=== PATIENT | male | born 1970 | race Caucasian/White ===

== ENCOUNTER 2019-04-13 20:46 | Emergency (ER) | payer OTHER ==
[~2019-04-13] VITALS: Ht 177.8 cm; Wt 113.4 kg
[2019-04-13] MEDS ORDERED: COZAAR 25 MG TA25 M1 PO (20:52)
[2019-04-13 21:10] LABS: URINE BILIRUBIN NEGATIVE (Negative); URINE BLOOD NEGATIVE (Negative); URINE CLARITY CLEAR; URINE COLOR YELLOW; URINE GLUCOSE-RANDOM NEGATIVE (Negative); URINE KETONES NEGATIVE (Negative); URINE LEUKOCYTES NEGATIVE (Negative); URINE NITRITE NEGATIVE (Negative); URINE PROTEIN NEGATIVE (Negative); URINE SPECIFIC GRAVITY 1.015 (1.005-1.030); URINE UROBILINOGEN 0.2 E.U./dl (0.2-1.0)
[2019-04-13 22:15] LABS: ABSOLUTE EOSINOPHILS 0.3 thou/uL (0.0-0.7); ABSOLUTE LYMPHOCYTES 3.5 thou/uL (0.8-5.3); ABSOLUTE MONOCYTES 1.1 thou/uL (0.0-1.2); BASOPHILS 0.5 %; EOSINOPHILS 2.9 %; HEMOGLOBIN 16.2 gm/dL (14.0-18.0); LYMPHOCYTES 35.2 %; MCH 26.2 pg (26.0-34.0); MCV 79.4 fL (80.0-100.0); MONOCYTES 11.1 %; MPV 8.8 fl. (7.2-11.1); NUCLEATED RBCS 0 /100WBC; PLATELET COUNT* 285 thou/uL (150-400); POLYS 50.3 %; RBC 6.17 mil/uL (4.50-6.00); RDW-CV 14.9 % (10.5-14.5); WBC 9.9 thou/uL (4.0-11.0)
[2019-04-13 22:19] LABS: CALCIUM 9.2 mg/dL (8.5-10.1); POTASSIUM 3.9 mmol/L (3.5-5.1)
[2019-04-13 22:23] LABS: ALBUMIN 3.8 g/dL (3.4-5.0); TOTAL BILIRUBIN 0.3 mg/dL (<0.1-1.0)
[2019-04-13] MEDS ORDERED: NASONEX17 GM NASAL (23:34)
[2019-04-13] MEDS ORDERED: PREDNISONE50 MG PO (23:34)
[2019-04-13] MEDS ORDERED: PROAIR HFA8.5 GM INH (23:34)
[2019-04-13] MEDS ORDERED: PROTONIX40 MG PO (23:34)
[2019-04-13] MEDS ORDERED: CARAFATE 1 GM TA1 GM PO (23:34)
[2019-04-13] MEDS ORDERED: BIAXIN 500 MG500 M2 PO (23:36)
[2019-04-13 23:52] VITALS: BP 162/103
== END 2019-04-13 23:53 | disposition home or self-care (01) ==
LOC: M.ERS 20:46
PROVIDERS: Emergency Medicine
DX: K21.9 Gastro-esophageal reflux disease without esophagitis (principal); J40 Bronchitis, not specified as acute or chronic; R42 Dizziness and giddiness; I10 Essential (primary) hypertension; F17.210 Nicotine dependence, cigarettes, uncomplicated; Z88.0 Allergy status to penicillin

== ENCOUNTER → 2019-10-15 | Outpatient (CLI) | payer OTHER ==
[~2019-10-15] MED LIST: BIAXIN 500 MG500 M2 PO; CARAFATE 1 GM TA1 GM PO; COZAAR 25 MG TA25 M1 PO; NASONEX17 GM NASAL; PREDNISONE50 MG PO; PROAIR HFA8.5 GM INH; PROTONIX40 MG PO
== END ==
LOC: M.ULTRA 09:00
DX: K76.0 Fatty (change of) liver, not elsewhere classified (principal); Z86.19 Personal history of other infectious and parasitic diseases